=== PATIENT | female | born 1945 | race Caucasian/White ===

== ENCOUNTER → 2023-09-14 14:15 | Outpatient (REF) | payer OTHER, SELFPAY | LOC: HWRAD 14:15 | PROVIDERS: ATTENDING PHYSICIAN Physician Assistant Medical | DX: R10.9 Unspecified abdominal pain (principal) | CPT/HCPCS: 74176 ==

== ENCOUNTER 2023-10-17 15:36 | Emergency (ER) | payer OTHER, SELFPAY ==
[2023-10-17 15:44] VITALS: BMI 36.6
[2023-10-17 15:46] VITALS: BP 170/69
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
[2023-10-17] MEDS: TYLENOL 650 MG PO (17:54)
[2023-10-17] MEDS: ROXICODONE 5 MG PO (19:34)
== END 2023-10-17 19:50 | disposition home or self-care (01) ==
LOC: EMR 15:36
PROVIDERS: EMERGENCY PHYSICIAN Emergency Medicine; FAMILY PHYSICIAN Physician Assistant Medical
DX: S80.02XA Contusion of left knee, initial encounter (principal); S40.012A Contusion of left shoulder, initial encounter; S49.92XA Unspecified injury of left shoulder and upper arm, initial encounter; W19.XXXA Unspecified fall, initial encounter; E11.9 Type 2 diabetes mellitus without complications; I10 Essential (primary) hypertension; E78.00 Pure hypercholesterolemia, unspecified; J45.909 Unspecified asthma, uncomplicated
CPT/HCPCS: 99283; 71046; 72220; 73030; 73502

== ENCOUNTER → 2024-02-20 13:16 | Outpatient (REF) | payer OTHER, SELFPAY ==
[2024-02-20 14:32] LABS: Albumin 4.2 g/dl (3.5-5.0); Blood Urea Nitrogen 31 mg/dl (7-17); Calcium 9.4 mg/dl (8.4-10.2); Carbon Dioxide 25 mmol/L (22-30); Chloride 104 mmol/L (98-107); Glucose 168 mg/dl (70-99); Phosphorus 4.2 mg/dl (2.5-4.5); Potassium 4.2 mmol/L (3.5-5.1); Sodium 140 mmol/L (135-145)
[2024-02-20 14:34] LABS: Urine Protein 11 mg/dl (0-12)
[2024-02-20 14:51] LABS: Intact PTH 42.4 pg/ml (13.6-85.8)
[2024-02-21 09:27] LABS: Glycohemoglobin (HgbA1c) 6.9 % (4.0-5.6)
== END ==
LOC: REG 13:16
PROVIDERS: ATTENDING PHYSICIAN Internal Medicine; FAMILY PHYSICIAN Physician Assistant Medical
DX: N18.4 Chronic kidney disease, stage 4 (severe) (principal); E11.22 Type 2 diabetes mellitus with diabetic chronic kidney disease
CPT/HCPCS: 36415; 80069; 82570; 83036; 83970; 84156

== ENCOUNTER → 2024-02-26 13:21 | Outpatient (REF) | payer OTHER, SELFPAY | LOC: REG 13:21 | PROVIDERS: ATTENDING PHYSICIAN Ophthalmology | DX: H53.2 Diplopia (principal); H02.409 Unspecified ptosis of unspecified eyelid | CPT/HCPCS: 36415; 86366 ==

== ENCOUNTER → 2024-08-20 19:15 | Outpatient (REF) | payer OTHER, SELFPAY | LOC: WDC 19:15 | PROVIDERS: ATTENDING PHYSICIAN Physician Assistant Medical | DX: Z12.31 Encounter for screening mammogram for malignant neoplasm of breast (principal) | CPT/HCPCS: 77063; 77067 ==

== ENCOUNTER 2024-10-18 08:51 | Emergency (ER) | payer OTHER, SELFPAY ==
[2024-10-18 09:01] VITALS: BP 164/91
[2024-10-18 09:16] LABS: % Basophils 0.5 % (0-2); % Eosinophils 3.6 % (0-6); % Immature Granulocytes 0.4 % (0-0.5); % Lymphocytes 21.8 % (20.5-51.1); % Monocytes 8.7 % (1.7-9.3); Absolute Eosinophils 0.3 10^3/uL (0-0.7); Absolute Lymphocytes 1.7 10^3/uL (1.2-3.4); Absolute Monocytes 0.7 10^3/uL (0.1-0.6); Absolute Neutrophils 5.1 10^3/uL (1.4-6.5); Hematocrit 36.4 % (37.0-47.0); Hemoglobin 12.3 g/dL (12.0-16.0); Mean Corp Hgb Conc. 33.8 g/dL (33.0-37.0); Mean Corpuscular Hgb 30.4 pg (27.0-31.0); Mean Corpuscular Volume 90.1 fL (81.0-99.0); Mean Platelet Volume 10.3 fL (7.4-10.4); Nucleated Red Blood Cells % 0 %; Platelet Count 154 10^3/uL (130-400); Red Blood Cell Count 4.04 10^6/uL (4.20-5.40); Red Cell Dist. Width 13.9 % (11.5-14.5); White Blood Cell Count 7.8 10^3/uL (4.8-10.8)
[2024-10-18 09:39] LABS: ALT (SGPT) 16 U/L (0-35); AST (SGOT) 21 U/L (14-36); Albumin 3.9 g/dl (3.5-5.0); Alkaline Phosphatase 62 U/L (38-126); Blood Urea Nitrogen 41 mg/dl (7-17); Carbon Dioxide 24 mmol/L (22-30); Chloride 110 mmol/L (98-107); Glucose 196 mg/dl (70-99); Potassium 4.3 mmol/L (3.5-5.1); Sodium 142 mmol/L (135-145); Total Bilirubin 0.5 mg/dl (0.2-1.3); Total Protein 6.9 g/dl (6.3-8.2); eGFR 28.66
[2024-10-18 10:25] VITALS: BP 177/90
[2024-10-18 10:35] LABS: Urine Albumin 1+ (Neg - Trace); Urine Bilirubin Negative (Negative); Urine Character Clear (Clear); Urine Color Yellow; Urine Glucose Negative (Negative); Urine Ketone Negative (Negative); Urine Leukocyte Negative (Negative); Urine Nitrite Negative (Negative); Urine Occult Blood 3+ (Negative); Urine Specific Gravity 1.025 (<1.030); Urine Urobilinogen Negative (Neg - 1+)
[2024-10-18] MEDS: MORPHINE SULFATE 4 MG IV (10:43)
[2024-10-18] MEDS: NSS 500 IV (10:43)
--- NOTE | 2024-10-18 10:46 | ED.GENMED ---
History of Present Illness
General
Chief Complaint: Back Pain
Source: patient
Exam Limitations: none
Time Seen by Provider: 10/18/24 10:09
History of Present Illness
History of Present Illness:
78-year-old female complaining of bilateral mid back pain. History of kidney stones. Feels similar. Pain started overnight. Has chronic pain issues but this is different. No dysuria or frequency. No fever or chills.
Past History
Past History
ED Past Medical History: HTN, Hypercholesterolemia, NIDDM, Psychiatric (Depression), Other (Sleep apnea, DVT/PE, anemia, Kidney stones, GI bleeding) and Other (Thyroid nodules)
ED Past Surgical History: Cholecystectomy, Gynecological (Hysterectomy; ovarian cyst removal) and Orthopedic (Right total knee arthroplasty; B/L hip replacement)
Social History
Tobacco: Non-smoker
Alcohol: None
Drug: None
Personal:
Living: with family
Employment: Not employed
Family History
Family History: Other (Coronary artery disease in her father Alzheimer's and her mother diabetes in her mother hypertension in her mother. Is also family history of colon cancer)
Review of Systems
Review of Systems
All Other Systems: Not applicable
Constitutional: Denies fever or chills
Respiratory: Reports no symptoms
Cardiac: Reports no symptoms
ABD/GI: Reports no symptoms
Phy Exam
Physical Exam
Physical Exam:
GENERAL: Alert and oriented in no apparent distress. Ambulating without difficulty. Uses a cane
EYE: Orbits normal.
NECK: Supple
CARDIAC: Regular rate and rhythm without any obvious murmurs.
LUNGS: Clear breath sounds,normal
ABDOMEN: Soft, without focal tenderness or distention
NEUROLOGICAL: Alert and oriented , grossly non-focal
SKIN: Warm and dry, no rash or lesion, no discoloration, skin intact.
MUSCULOSKELETAL: No edema,no deformity.Good color. No spinal tenderness. No CVA tenderness
PSYCH: Normal and appropriate interaction.
Course
Orders/Labs/Results
Orders:
Orders
10/18/24 09:08
CMP [Comprehensive Metabolic Panel] Urgent
Complete Blood Count/With Diff Urgent
10/18/24 10:21
Urinalysis Reflex To Culture Urgent
Date Specimen was Collected: 10/18/24
Time Specimen was Collected: 10:20
Urine Microscopic Reflex Cult Urgent
10/18/24 10:33
CT Abd/pel Without Iv Or Oral Urgent
Comment:
Reason For Exam: Back pain. History of kidney stones
IV Insert/Care/Rem.- Treatment PRN
0.9% Sodium Chloride 500 ml [Nss] 500 ml IV BOLUS
Morphine Sulfate 4 mg IV NOW STA
Abnormal Lab Results
10/18/24 10/18/24
09:08 10:21
RBC 4.04 L 10^6/uL
(4.20-5.40)
Hct 36.4 L %
(37.0-47.0)
Absolute Monos (auto) 0.7 H 10^3/uL
(0.1-0.6)
Chloride 110 H mmol/L
(98-107)
BUN 41 H mg/dl
(7-17)
Creatinine 1.8 H mg/dL
(0.6-1.0)
Glucose 196 H mg/dl
(70-99)
Ur Occult Blood Reflex 3+ A
(Negative)
Urine RBC 3-6 A /HPF
(0-2)
Urine Bacteria (Reflex) Few A
(Negative)
Urine Albumin (Reflex) 1+ A
(Neg - Trace)
10/18/24 09:08
10/18/24 09:08
Vital Signs
Initial and Last Documented VS:
Initial Vital Signs
Temp Pulse Resp BP Pulse Ox
97.6 F 59 18 164/91 99
10/18/24 09:01 10/18/24 09:01 10/18/24 09:01 10/18/24 09:01 10/18/24 09:01
Last Documented Vital Signs
Temp Pulse Resp BP Pulse Ox
97.6 F 57 16 119/65 98
10/18/24 09:01 10/18/24 13:07 10/18/24 13:07 10/18/24 13:01 10/18/24 13:01
MDM/Problems Addressed
Differential Diagnosis Includes:
Clinically nontoxic in no distress. Likely either kidney stone or musculoskeletal. Workup in progress
*Radiology
Radiology exam reviewed: radiology read reviewed (No obstructing kidney stones.)
*Pulse Oximetry
Patient hypoxic: no
*Critical Care Note
Total Time (30-74mins, 75-104mins- exclusive of procedures): Not Applicable
Data Reviewed
Review of Other/Old Records Reveals: Labs, Records, Radiology Studies and Testing
Update Note
Update Note:
Nothing to support urologic issue. No obstructing kidney stones. Urinalysis is likely negative. Fairly contaminated. No factious issues. Discussed admission versus outpatient management. Medically this would just be pain management at this
time although admission was offered to the patient. She would like to go home and is comfortable going home.
ED Attending Note
-
Portions of this chart may have been created with voice recognition software.� Occasional wrong word or��sound alike� substitutions may have occurred due to the inherent limitations of voice recognition software.
Discharge Plan
Departure
Patient Disposition: Home (Routine Discharge)
Date of Disposition: 10/18/24
Time of Disposition: 12:41
Patient with high blood pressure during this ER visit?: Yes
Discharge Problem:
Back pain, History of kidney stones, Chronic renal insufficiency
Instructions: Low Back Pain (DC), BLOOD PRESSURE
Prescriptions:
New
hydrocodone-acetaminophen 5-300 mg tablet
1 tab PO Q4H PRN (Reason: Pain) Qty: 14 0RF
No Action
sertraline 100 MG tablet
100 mg PO HS
simvastatin 20 MG tablet
20 mg PO HS Qty: 0
Lumigan 1 DROP drops
1 drp BOTH EYES HS
Vyzulta 5 ML drops
1 drp BOTH EYES HS
Vitamin D3 (cholecalciferol):
1 tab PO DAILY
metoprolol tartrate 25 MG tablet
25 mg PO DAILY Qty: 30 0RF
glipizide 10 MG tablet
5 mg PO DAILY Qty: 0 0RF
Rx Instructions:
DO NOT TAKE UNLESS EATING MORE OR BLOOD GLUCOSE LEVELS PERSISTENTLY ELEVATED
hydralazine 10 mg Tablet
10 mg PO BID
brimonidine-timolol [Combigan] 0.2-0.5 % drops
1 drp BOTH EYES BID
cyclobenzaprine 10 mg Tablet
5 mg PO TID Qty: 21 0RF
Rx Instructions:
Can cause drowsiness - caution with combination of pain meds
lidocaine [Aspercreme (lidocaine)] 4 % Adhesive Patch,Medicated
1 patch topical DAILY Qty: 10 0RF
acetaminophen 325 mg Tablet
650 mg PO Q4HPRN PRN (Reason: mild pain/JULIO/temp> 100.4F) Qty: 1 0RF
oxycodone 5 mg Tablet
5 mg PO Q6HPRN PRN (Reason: moderate to severe pain) Qty: 20 0RF
docusate sodium [Colace] 100 mg capsule
100 mg PO DAILY Qty: 30 0RF
polyethylene glycol 3350 [Miralax] 17 gram/dose powder
4 g PO DAILY PRN (Reason: constipation) Qty: 119 0RF
Referrals:
Tenisha Bills PA [Family Provider] - Follow up in 2-3 days
Activity Restrictions/Additional Instructions:
The prescription was sent to your pharmacy Tylenol or Vicodin for pain
Return with increasing pain fever or any other concerning symptoms
Interventions
Interventions:
*Risk Screen - Suicide Last Done: 10/18/24 10:11
*General Assessment Last Done: 10/18/24 10:10
*Neglect/Abuse Screening Last Done: 10/18/24 10:11
*ED- Fall Risk Assessment Last Done: 10/18/24 10:10
*ED COVID-19 Vaccine History Last Done: 10/18/24 10:10
ED-Musculoskeletal Assessment Last Done: 10/18/24 10:11
Discharge Date and Time
Print Language: CHINESE
[2024-10-18 11:42] LABS: Urine Bacteria Few (Negative); Urine Squamous Cell >30 /LPF (Few); Urine White Cell 0-2 /HPF (0-5)
[2024-10-18 13:01] VITALS: BP 119/65
== END 2024-10-18 13:15 | disposition home or self-care (01) ==
LOC: EMR 08:51
PROVIDERS: Emergency Medicine; EMERGENCY PHYSICIAN Emergency Medicine; FAMILY PHYSICIAN Physician Assistant Medical
DX: M54.9 Dorsalgia, unspecified (principal); E11.22 Type 2 diabetes mellitus with diabetic chronic kidney disease; I12.9 Hypertensive chronic kidney disease with stage 1 through stage 4 chronic kidney disease, or unspecified chronic kidney disease; N18.9 Chronic kidney disease, unspecified; E78.00 Pure hypercholesterolemia, unspecified; Z87.442 Personal history of urinary calculi; Z90.49 Acquired absence of other specified parts of digestive tract; Z90.710 Acquired absence of both cervix and uterus
CPT/HCPCS: 96374; 96361; 99284; 74176; 80053; 81003; 81015; 85025